=== PATIENT | female | born 1955 | race Caucasian/White ===

== ENCOUNTER 2016-09-16 10:35 | Emergency (ER) | payer MEDICAID, OTHER ==
[~2016-09-16] VITALS: Ht 162.6 cm; Wt 86.0 kg
[2016-09-16 10:37] VITALS: BP 178/82; PULSE 85; RESP 18; TEMP 98.3
[2016-09-16] MEDS ORDERED: PROPARACAINE HCL 0.5% OPHT SOLN 15 ML BTL EACH EYE ONE (11:00)
--- NOTE | 2016-09-16 11:11 | PD ---
HPI Chief Complaint: Eye Problems/Injury Time Seen by Provider: 11:10 Travel History International Travel<30 days: No Contact w/Intl Traveler<30days: No Traveled to known affect area: No History of Present Illness HPI 60-year-old female presents to the emergency department with bilateral eye pain and burning. She said she wiped her eyes with some pads that were in a Her bed and doesn't know what was in the cup. 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 After she wiped her eyes with the cup she immediately had burning sensation in her eyes. Reports sensitivity to light. Does not know if she's had change in vision. Denies fever, chills, nausea, vomiting. Allergies to sulfa. No other modifying factors or associated signs and symptoms. PFSH Social History Tobacco Use: No Allergies-Medications (Allergen,Severity, Reaction): Coded Allergies: Sulfa (Verified Allergy, Mild, rash, 09/16/16) Reported Meds & Prescriptions Reported Meds & Active Scripts Active Ibuprofen 800 Mg Tab 800 Mg PO Q6HR PRN Erythromycin Opth Oint 5 Mg/Gm Oint 1 Applic EACH EYE QID 7 Days Review of Systems Except as stated in HPI: all other systems reviewed are Neg Physical Exam Narrative GENERAL: Well-nourished, well-developed patient, in no acute distress SKIN: Warm and dry. HEAD: Atraumatic. Normocephalic. EYES: Pupils equal and round at 3 mm with brisk reaction. PERRLA. EOMI. visual acuity 20/70 bilateral, left and right: Without correction. Bilateral lid eversion with no foreign body noted. Bilateral eye with mild scleral erythema and without lid edema. No orbital tenderness, erythema or cellulitis. Bilateral eye with photophobia. No consensual photophobia. No scleral icterus. Clear drainage. Lara lamp exam reveals bilateral chemical eye injury over the pupil and iris. Bilateral eye pH after irrigation is 7. ENT: Mucosa pink and moist. Airway patent. NECK: Trachea midline. CARDIOVASCULAR: Regular rate. RESPIRATORY: No accessory muscle use. GASTROINTESTINAL: Rounded. NEUROLOGICAL: Awake and alert. Oriented 3. No obvious cranial nerve deficits. Motor grossly within normal limits. Normal speech. PSYCHIATRIC: Appropriate mood and affect; insight and judgment normal. Data Data Last Documented VS Vital Signs Date Time Temp Pulse Resp B/P Pulse Ox O2 Delivery O2 Flow Rate FiO2 09/16/16 10:37 98.3 85 18 178/82 Room Air Orders Eye Irrigation (09/16/16 10:49) Proparacaine 0.5% Opth Soln (Alcaine 0.5 (09/16/16 11:00) MDM Medical Decision Making Medical Screen Exam Complete: Yes Emergency Medical Condition: Yes Medical Record Reviewed: Yes Differential Diagnosis Eye Chemical burn, eye irritation, foreign body, corneal ulceration Narrative Course 60-year-old female with bilateral eye irritation and burning after wiping her eyes with a pad that was in a Her bed. She does not know what fluid was in the cup. Bilateral Christiano lens eye irrigation ordered. 1205: Patient's visual acuity is 20/70 bilateral, left, right without corrective lenses. The patient states that she was told she supposed be wearing bifocals and does not wear any corrective lenses or contacts. Lara lamp exam concludes bilateral chemical eye insult over the pupils and iris of both eyes. Patient was provided with Dr. Celestina Singh, supervisor fur floor worker information and was told to follow up with any supervisor fur floor worker of choice within the next day. Patient has insurance and does not need mandatory referral. Erythromycin and ibuprofen prescribed for home. Patient verbalizes understanding and agreement with treatment plan. Patient is medically cleared and stable for discharge. Discussed reasons to return to the emergency department. Instructed patient to follow up with primary care provider. Patient agrees with treatment plan. The patients vital signs are stable and the patient is stable for outpatient follow-up and treatment. Patient discharged home, stable and in no acute distress. 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 Celestina Metzgers, ophthalmology, information is provided in her discharge instructions; you can follow up with any supervisor fur floor worker of choice Primary care provider Return to the emergency department immediately with worsening of symptoms Med/Other Pt SpecificInfo: Prescription(s) given Scripts Ibuprofen 800 Mg Kin638 Mg PO Q6HR PRN (PAIN) #30 TAB Ref 0 Prov:Shania Cortez 09/16/16 Erythromycin Opth Oint 5 Mg/Gm Oint1 Applic EACH EYE QID 7 Days Ref 0 Prov:Shania Cortez 09/16/16 Disposition: 01 DISCHARGE HOME Condition: Stable Shania Cortez Sep 16, 2016 11:11
[2016-09-16] MEDS ORDERED: ERYTOIN10 EACH EYE (11:24)
[2016-09-16] MEDS ORDERED: IBUP800T23 PO (11:25)
== END 2016-09-16 12:13 | disposition home or self-care (01) ==
LOC: NEPK 10:35
DX: T65.91XA Toxic effect of unspecified substance, accidental (unintentional), initial encounter (principal); T26.92XA Corrosion of left eye and adnexa, part unspecified, initial encounter; T26.91XA Corrosion of right eye and adnexa, part unspecified, initial encounter
CPT/HCPCS: 99283